=== PATIENT | male | born 1990 | race Caucasian/White ===

== ENCOUNTER 2022-02-09 17:21 | Inpatient (IN) | payer MEDICAID ==
[~2022-02-09] VITALS: Ht 170.2 cm; Wt 109.0 kg
[2022-02-09] MEDS ORDERED: ASPIRIN 81MG TABLET PO ONE (23:30)
[2022-02-10 00:10] LABS: BASOPHILS % 0.3 % (0.0-2.0); HEMATOCRIT. 46.2 % (42.0-52.0); HEMOGLOBIN. 16.1 g/dL (14.0-18.0); LYMPHOCYTES % 12.4 % (20.0-50.0); MEAN CORPUSCULAR HEMOGLOBIN 31.9 pg (28.0-32.0); MEAN CORPUSCULAR VOLUME 91.4 fL (80.0-94.0); MEAN PLATELET VOLUME 8.8 fl (7.4-10.4); MONOCYTES % 7.5 % (2.0-8.0); NEUTROPHILS % 79.8 % (40.0-76.0); PLATELET 187 x1000/uL (130-400); RED BLOOD CELL COUNT 5.06 mill/uL (4.7-6.1)
[2022-02-10 00:12] LABS: CLARITY URINE CLEAR (CLEAR); COLOR URINE ORANGE (YELLOW); KETONES URINE TRACE (NEGATIVE); LEUKOCYTE ESTERASE URINE NEGATIVE (NEGATIVE); NITRITE URINE NEGATIVE (NEGATIVE); OCCULT BLOOD URINE NEGATIVE (NEGATIVE); PROTEIN URINE 1+ (NEGATIVE); SPECIFIC GRAVITY URINE 1.039 (1.005-1.030)
[2022-02-10 00:18] LABS: CHLORIDE 102 mEq/L (98-107)
[2022-02-10] MEDS ORDERED: KETOROLAC 60MG/2ML VIAL IM ONE (00:45)
[2022-02-10] MEDS: CYCLOBENZAPRINE 10MG TABLET PO SCH ×2 (01:07→02:04)
[2022-02-10] MEDS ORDERED: ASPIRIN 81MG TABLET PO ONE (02:30)
[2022-02-10] MEDS ORDERED: MAGNESIUM/ALUMINUM HYDROXIDE/SIMETHICONE 30ML UDC PO PRN (05:00)
[2022-02-10] MEDS ORDERED: ONDANSETRON HCL 4MG/2ML INJ IV PRN (05:00)
[2022-02-10] MEDS ORDERED: ACETAMINOPHEN 325MG TABLET PO PRN (05:00)
[2022-02-10] MEDS ORDERED: IPRATROPIUM/ALBUTEROL 0.5-3(2.5)MG/3ML NEB HHN PRN (05:00)
[2022-02-10] MEDS ORDERED: DOCUSATE SODIUM 100MG CAPSULE PO PRN (05:00)
[2022-02-10] MEDS ORDERED: CLONIDINE 0.1MG TABLET PO PRN (05:00)
[2022-02-10] MEDS ORDERED: GUAIFENESIN 200MG/10ML SUGAR FREE UDC PO PRN (05:00)
[2022-02-10] MEDS ORDERED: IOHEXOL-350 100 ML BOTTLE ONE (06:14)
[2022-02-10 08:00] VITALS: BP 127/82
[2022-02-10 08:30] VITALS: BP 127/82
[2022-02-10] MEDS: KETOROLAC 30MG/ML VIAL IM PRN ×2 (09:35→17:56)
[2022-02-10 12:00] VITALS: BP 120/75
[2022-02-10] MEDS ORDERED: SODIUM CHLORIDE 0.45% 1,000 ML IV SCH (13:00)
[2022-02-10 15:36] LABS: PHOSPHORUS 4.4 mg/dL (2.5-4.9)
[2022-02-10 16:00] VITALS: BP 139/78
[2022-02-10] MEDS ORDERED: CEFTRIAXONE 1 G PREMIX 50 ML IV SCH (16:15)
[2022-02-10] MEDS ORDERED: NALOXONE HCL 0.4MG/ML VIAL IV PRN (16:45)
[2022-02-10] MEDS: SODIUM CHLORIDE 0.45% 1,000 ML IV SCH (17:56)
[2022-02-10] MEDS ORDERED: CEFTRIAXONE 1,000 MG in DEXTROSE 5% WATER 50 ML IV SCH (18:00)
[2022-02-10] MEDS: LEVOFLOXACIN 750MG PREMIX 150 ML IV SCH (19:08)
[2022-02-10 20:00] VITALS: BP 114/61
[2022-02-10] MEDS: METRONIDAZOLE 500MG TABLET PO SCH (22:00)
[2022-02-11] MEDS: KETOROLAC 30MG/ML VIAL IM PRN ×2 (01:06→09:28)
[2022-02-11] MEDS: MORPHINE SULFATE 2 MG/ML CPJ (NOT FOR IM USE) IV PRN ×3 (01:06→22:06)
[2022-02-11] MEDS: SODIUM CHLORIDE 0.45% 1,000 ML IV SCH (01:15)
[2022-02-11 04:00] VITALS: BP 113/57
[2022-02-11] MEDS: METRONIDAZOLE 500MG TABLET PO SCH ×3 (04:42→22:15)
[2022-02-11 08:00] VITALS: BP 122/89
[2022-02-11 09:12] LABS: BASOPHILS % 0.1 % (0.0-2.0); HEMATOCRIT. 41.5 % (42.0-52.0); HEMOGLOBIN. 14.5 g/dL (14.0-18.0); LYMPHOCYTES % 11.3 % (20.0-50.0); MEAN CORPUSCULAR HEMOGLOBIN 32.3 pg (28.0-32.0); MEAN CORPUSCULAR VOLUME 92.5 fL (80.0-94.0); MEAN PLATELET VOLUME 9.2 fl (7.4-10.4); MONOCYTES % 8.2 % (2.0-8.0); NEUTROPHILS % 80.4 % (40.0-76.0); PLATELET 139 x1000/uL (130-400); RED BLOOD CELL COUNT 4.49 mill/uL (4.7-6.1); RED CELL DISTRIBUTION WIDTH 12.5 % (11.6-14.6)
[2022-02-11] MEDS: ACETAMINOPHEN 325MG TABLET PO PRN (09:29)
[2022-02-11 09:37] LABS: CHLORIDE 100 mEq/L (98-107)
[2022-02-11 09:58] LABS: HDL CHOLESTEROL 45 mg/dL (40-59); LDL CHOLESTEROL 82 mg/dL (5-100); T4 FREE 1.17 ng/dL (0.76-1.46)
[2022-02-11 12:00] VITALS: BP 113/51
[2022-02-11 16:00] VITALS: BP 123/70
[2022-02-11] MEDS: LEVOFLOXACIN 750MG PREMIX 150 ML IV SCH (17:10)
[2022-02-11] MEDS: KETOROLAC 30MG/ML VIAL IV PRN (22:08)
[2022-02-12] MEDS: MORPHINE SULFATE 2 MG/ML CPJ (NOT FOR IM USE) IV PRN ×3 (04:48→18:14)
[2022-02-12] MEDS: KETOROLAC 30MG/ML VIAL IV PRN ×2 (05:17→21:02)
[2022-02-12] MEDS: METRONIDAZOLE 500MG TABLET PO SCH ×3 (05:17→21:02)
[2022-02-12] MEDS: ACETAMINOPHEN 325MG TABLET PO PRN (05:17)
[2022-02-12 08:00] VITALS: BP 117/67
[2022-02-12 08:05] LABS: BASOPHILS % 0.2 % (0.0-2.0); EOSINOPHILS % 0.1 % (0.0-5.0); HEMOGLOBIN. 14.2 g/dL (14.0-18.0); LYMPHOCYTES % 13.4 % (20.0-50.0); MEAN CORPUSCULAR HEMOGLOBIN 32.3 pg (28.0-32.0); MEAN CORPUSCULAR VOLUME 93.2 fL (80.0-94.0); MEAN PLATELET VOLUME 9.3 fl (7.4-10.4); MONOCYTES % 8.8 % (2.0-8.0); NEUTROPHILS % 77.5 % (40.0-76.0); PLATELET 140 x1000/uL (130-400); RED CELL DISTRIBUTION WIDTH 12.6 % (11.6-14.6)
[2022-02-12 09:14] LABS: CHLORIDE 102 mEq/L (98-107)
[2022-02-12] MEDS: SODIUM CHLORIDE 0.45% 1,000 ML IV SCH ×2 (12:53→21:02)
[2022-02-12 16:00] VITALS: BP 133/77
[2022-02-12] MEDS: LEVOFLOXACIN 750MG PREMIX 150 ML IV SCH (18:11)
[2022-02-12 20:00] VITALS: BP 123/66
[2022-02-13] VITALS (17 sets, daily range): BP systolic 110–155; BP diastolic 52–85
[2022-02-13] MEDS: CYCLOBENZAPRINE 10MG TABLET PO SCH (00:32)
[2022-02-13] MEDS: METRONIDAZOLE 500MG TABLET PO SCH ×3 (04:58→21:20)
[2022-02-13] MEDS: MORPHINE SULFATE 2 MG/ML CPJ (NOT FOR IM USE) IV PRN ×2 (04:59→11:04)
[2022-02-13 05:47] LABS: BASOPHILS % 0.2 % (0.0-2.0); EOSINOPHILS % 0.2 % (0.0-5.0); HEMATOCRIT. 39.2 % (42.0-52.0); HEMOGLOBIN. 13.9 g/dL (14.0-18.0); LYMPHOCYTES % 10.2 % (20.0-50.0); MEAN CORPUSCULAR HEMOGLOBIN 32.5 pg (28.0-32.0); MEAN CORPUSCULAR VOLUME 91.7 fL (80.0-94.0); MEAN PLATELET VOLUME 9.3 fl (7.4-10.4); MONOCYTES % 8.5 % (2.0-8.0); NEUTROPHILS % 80.9 % (40.0-76.0); PLATELET 169 x1000/uL (130-400); RED BLOOD CELL COUNT 4.28 mill/uL (4.7-6.1); RED CELL DISTRIBUTION WIDTH 12.5 % (11.6-14.6)
[2022-02-13 08:35] LABS: INR 1.1; PARTIAL THROMBOPLASTIN TIME 30.8 sec (23.4-31.0); PROTHROMBIN TIME 11.5 sec (9.6-11.0)
[2022-02-13] MEDS: SODIUM CHLORIDE 0.45% 1,000 ML IV SCH ×2 (11:55→21:20)
[2022-02-13] MEDS ORDERED: MIDAZOLAM HCL 2 MG/2 ML VIAL ONE (12:53)
[2022-02-13] MEDS ORDERED: IOHEXOL-300 50 ML BOTTLE IV ONE (12:53)
[2022-02-13] MEDS ORDERED: LIDOCAINE HCL/PF 1% 10 MG/ML 5ML VIAL ONE (12:53)
[2022-02-13] MEDS ORDERED: FENTANYL CITRATE/PF 50MCG/ML 2ML VIAL ONE (12:53)
[2022-02-13 13:39] LABS: CHLORIDE 102 mEq/L (98-107)
[2022-02-13] MEDS ORDERED: MIDAZOLAM HCL 5 MG/5 ML VIAL IV ONE (13:45)
[2022-02-13] MEDS ORDERED: FENTANYL CITRATE/PF 50MCG/ML 2ML VIAL IV ONE (13:45)
[2022-02-13] MEDS ORDERED: FENTANYL CITRATE/PF 50MCG/ML 2ML VIAL IV NR (14:15)
[2022-02-13] MEDS ORDERED: MIDAZOLAM HCL 5 MG/5 ML VIAL IV NR (14:15)
[2022-02-13] MEDS: ACETAMINOPHEN 325MG TABLET PO PRN (15:07)
[2022-02-13] MEDS: KETOROLAC 30MG/ML VIAL IV PRN (16:29)
[2022-02-13] MEDS: LEVOFLOXACIN 750MG PREMIX 150 ML IV SCH (18:04)
[2022-02-14] VITALS: BP 105/67
[2022-02-14] MEDS: CYCLOBENZAPRINE 10MG TABLET PO SCH (00:30)
[2022-02-14] MEDS: MORPHINE SULFATE 2 MG/ML CPJ (NOT FOR IM USE) IV PRN (02:15)
[2022-02-14 04:00] VITALS: BP 112/60
[2022-02-14] MEDS: METRONIDAZOLE 500MG TABLET PO SCH ×3 (05:43→21:33)
[2022-02-14] MEDS: SODIUM CHLORIDE 0.45% 1,000 ML IV SCH ×3 (05:45→21:33)
[2022-02-14 07:13] LABS: HEMATOCRIT 38.9 % (42.0-52.0); HEMOGLOBIN 13.7 g/dL (14.0-18.0); MEAN CORPUSCULAR HEMOGLOBIN 32.6 pg (28.0-32.0); MEAN CORPUSCULAR VOLUME 92.1 fL (80.0-94.0); PLATELET 192 x1000/uL (130-400); RED BLOOD CELL COUNT 4.22 mill/uL (4.7-6.1); RED CELL DISTRIBUTION WIDTH 12.5 % (11.6-14.6)
[2022-02-14 07:51] VITALS: BP 119/72
[2022-02-14 10:23] LABS: CHLORIDE 103 mEq/L (98-107)
[2022-02-14 12:04] VITALS: BP 121/75
[2022-02-14] MEDS ORDERED: OMEP20CA14 MT (14:11)
[2022-02-14] MEDS ORDERED: CEFU500T41 MT (14:11)
[2022-02-14] MEDS ORDERED: ACET-2708 MT (14:11)
[2022-02-14 16:00] VITALS: BP 106/51
[2022-02-14] MEDS: LEVOFLOXACIN 750MG PREMIX 150 ML IV SCH (17:41)
[2022-02-14 20:00] VITALS: BP 113/57
[2022-02-15] VITALS: BP 106/64
[2022-02-15] MEDS: CYCLOBENZAPRINE 10MG TABLET PO SCH (00:18)
[2022-02-15 04:00] VITALS: BP 120/79
[2022-02-15] MEDS: SODIUM CHLORIDE 0.45% 1,000 ML IV SCH (05:45)
[2022-02-15] MEDS: METRONIDAZOLE 500MG TABLET PO SCH (05:45)
[2022-02-15 07:08] LABS: BASOPHILS % 0.4 % (0.0-2.0); EOSINOPHILS % 0.8 % (0.0-5.0); HEMATOCRIT. 39.9 % (42.0-52.0); LYMPHOCYTES % 19.3 % (20.0-50.0); MEAN CORPUSCULAR HEMOGLOBIN 32.5 pg (28.0-32.0); MEAN CORPUSCULAR VOLUME 92.3 fL (80.0-94.0); MEAN PLATELET VOLUME 8.8 fl (7.4-10.4); MONOCYTES % 10.1 % (2.0-8.0); NEUTROPHILS % 69.4 % (40.0-76.0); PLATELET 212 x1000/uL (130-400); RED BLOOD CELL COUNT 4.32 mill/uL (4.7-6.1); RED CELL DISTRIBUTION WIDTH 12.5 % (11.6-14.6)
[2022-02-15 08:00] VITALS: BP 133/76
[2022-02-15 08:56] LABS: CHLORIDE 105 mEq/L (98-107)
[2022-02-15 11:18] VITALS: BP_DIAS 131
[2022-02-15 12:00] VITALS: BP 131/80
== END 2022-02-15 14:18 | disposition home or self-care (01) ==
LOC: ER 17:21 → 6WST 02-10 02:30 → EDBEDREQ 02-10 02:32 → ENRESERV 02-10 06:57
PROVIDERS: ADMIT Internal Medicine; ATTEND Internal Medicine
PROC: 0F9430Z Drainage of Gallbladder with Drainage Device, Percutaneous Approach (ICD-10-PCS; principal; 2022-02-13)
DX: K80.00 Calculus of gallbladder with acute cholecystitis without obstruction (principal); J86.9 Pyothorax without fistula; I24.8 Other forms of acute ischemic heart disease; K76.0 Fatty (change of) liver, not elsewhere classified; K59.00 Constipation, unspecified; R73.9 Hyperglycemia, unspecified; Z82.49 Family history of ischemic heart disease and other diseases of the circulatory system; Z20.822 Contact with and (suspected) exposure to COVID-19; E80.6 Other disorders of bilirubin metabolism; R74.01 Elevation of levels of liver transaminase levels; E66.9 Obesity, unspecified; Z68.37 Body mass index [BMI] 37.0-37.9, adult
CPT/HCPCS: 36415; 47490; 71045; 71275; 74018; 74176; 76700; 78227; 80048; 80053; 80061; 80076; 81003; 82248; 82962; 83036; 83735; 84100; 84439; 84443; 84484; 85025; 85027; 87075; 87426; 93005; 99152; 99153; 99285; A9537; C1729; C1769; J0696; J1885; J1956; J2250; J2270; J3010; J3490; J7060; Q9967; G0500